=== PATIENT | male | born 1995 | race Caucasian/White ===

== ENCOUNTER 2017-06-10 21:02 | Emergency (ER) | payer SELFPAY ==
[~2017-06-10] VITALS: Ht 167.6 cm; Wt 65.9 kg
[2017-06-10 23:03] VITALS: BP 128/75
== END 2017-06-10 23:13 | disposition home or self-care (01) ==
LOC: EMS 21:04
DX: S62.522A Displaced fracture of distal phalanx of left thumb, initial encounter for closed fracture (principal); X58.XXXA Exposure to other specified factors, initial encounter; Y93.89 Activity, other specified; Y92.89 Other specified places as the place of occurrence of the external cause; Y99.8 Other external cause status
CPT/HCPCS: 99284

== ENCOUNTER 2018-05-11 15:43 | Emergency (ER) | payer MEDICAID ==
[~2018-05-11] VITALS: Ht 167.6 cm; Wt 61.4 kg
[2018-05-11 17:38] VITALS: BP 112/62
== END 2018-05-11 17:38 | disposition home or self-care (01) ==
LOC: EMS 15:44
DX: S61.402D Unspecified open wound of left hand, subsequent encounter (principal); X58.XXXD Exposure to other specified factors, subsequent encounter
CPT/HCPCS: 99283

== ENCOUNTER 2023-03-08 21:48 | Emergency (ER) | payer MEDICAID, OTHER ==
[~2023-03-08] VITALS: Ht 172.7 cm; Wt 65.0 kg
[2023-03-08 21:54] VITALS: BP 128/80; PULSE 78; RESP 17; TEMP 100
[2023-03-08] MEDS ORDERED: PERTUSS(ACELL),DIPH,TET VAC/PF 0.5 ML SYRINGE IM. ONE (23:00)
== END 2023-03-08 23:27 | disposition home or self-care (01) ==
LOC: EMS 21:49
DX: S61.011A Laceration without foreign body of right thumb without damage to nail, initial encounter (principal); W23.0XXA Caught, crushed, jammed, or pinched between moving objects, initial encounter; Y93.89 Activity, other specified; Y92.89 Other specified places as the place of occurrence of the external cause; Y99.8 Other external cause status
CPT/HCPCS: 90471; 90715; 99283

== ENCOUNTER 2024-12-12 02:44 | Emergency (ER) | payer OTHER ==
[~2024-12-12] VITALS: Ht 170.2 cm; Wt 83.1 kg
[2024-12-12] MEDS ORDERED: SULF-261 PO (03:22)
[2024-12-12] MEDS ORDERED: IBUP-1492 PO (03:22)
[2024-12-12] MEDS ORDERED: ACET-2247 PO (03:22)
[2024-12-12] MEDS ORDERED: CEPH-558 PO (03:22)
[2024-12-12 03:30] VITALS: BP 137/78; PULSE 106; RESP 22; TEMP 97.9; O2SAT 100
[2024-12-12] MEDS: CEPHALEXIN MONOHYDRATE 500 MG CAPSULE PO ONE (03:45)
[2024-12-12] MEDS: ACETAMINOPHEN 325 MG TABLET PO ONE (03:45)
[2024-12-12] MEDS: SULFAMETHOX/TRIMETH DS 800-160 MG/TABLET PO ONE (03:45)
[2024-12-12] MEDS: IBUPROFEN 600 MG TABLET PO ONE (03:46)
== END 2024-12-12 04:22 | disposition home or self-care (01) ==
LOC: EMS 02:46
DX: L03.012 Cellulitis of left finger (principal)
CPT/HCPCS: 99284; Z7502; Z7610